=== PATIENT | female | born 1935 | race Caucasian/White ===

== ENCOUNTER 2016-11-29 06:49 | Emergency (ER) | payer MEDICARE ==
[~2016-11-29] VITALS: Ht 162.6 cm; Wt 69.0 kg
[~2016-11-29 06:49] MED LIST: AMARYL1 M1 PO; AMARYL4 MG OR; AMLODIPINE5 MG PO; BACTRIM DS1 TAB OR; BACTRIM DS1 TAB PO; BENAZEPRIL40 M1 PO; CALCIUM CHEL1 CAP OR; CEPHALEXIN500 M1 PO; CIPRO500 MG OR; CIPRODEX1 ML AD; CIPROFLOXACN500 MG PO; DEBROX6.5 % AD; FISH OIL500 MG OR; FLONASE NASAL50 MCG; GNP RED YEAST RICE; HYDROCHLOROT25 MG OR; LISINOPRIL40 MG PO; LISINOPRIL5 MG PO; LORTAB 5 OR; LOTREL1 CA1 OR; LOTREL1 CA3 OR; MAGNESIUM250 M1 PO; MECLIZINE25 MG PO; MEDDOSEPAK OR; METFORMIN1000 MG OR; METFORMIN500 M1 PO; METRONIDAZOL500 MG PO; MUCINEX600 MG OR; MUCINEX600 MG PO; NORCO1 TA1 PO; PERCOCET 5/325M1 TAB OR; PROTONIX40 M2 PO; TESSALON PER100 MG PO; ZITHROMAX250 MG PO
[2016-11-29] MEDS ORDERED: AMLODIPINE5 MG PO (06:58)
[2016-11-29 07:52] LABS: HEMATOCRIT 34.1 % (37.0-47.0); HEMOGLOBIN 11.1 g/dl (12.0-16.0); IMMATURE GRANULOCYTES 0.4 % (0.0-1.0); MEAN CELL VOLUME 93.9 fL CALC (80.0-100.0); MEAN CORPUSCULAR HGB 30.6 pG CALC (26.0-32.0); MEAN CORPUSCULAR HGB CONC 32.6 g/L CALC (32.0-36.0); NEUT# 2.22 thou/uL (2.00-7.15); RED BLOOD COUNT 3.63 mill/uL (4.20-5.60); RED CELL DISTRI WIDTH 12.6 % (11.5-15.5)
[2016-11-29 07:54] LABS: URINE BILIRUBIN - DIPSTICK NEGATIVE (NEGATIVE); URINE BLOOD DIPSTICK TRACE-LYSED (NEGATIVE); URINE CLARITY CLEAR; URINE COLOR YELLOW; URINE GLUCOSE - DIPSTICK NEGATIVE (NEGATIVE); URINE KETONE NEGATIVE (NEGATIVE); URINE LEUK ESTERASE TRACE (NEGATIVE); URINE NITRITE - DIPSTICK NEGATIVE (Negative); URINE PROTEIN - DIPSTICK NEGATIVE (NEG-TRACE); URINE UROBILINOGEN - DIPSTICK 0.2 E.U./dL (0.2)
[2016-11-29 08:02] LABS: ALBUMIN 4.5 g/dL (3.2-5.0); ALKALINE PHOSPHATASE 95 u/l (38-126); ANION GAP 17 (6-22 (CALC)); BILIRUBIN, TOTAL 0.2 mg/dL (0.0-1.4); BUN 23 mg/dL (8-23); BUN/CREATININE RATIO 25 (12-20 (CALC)); CALCIUM 9.8 mg/dL (8.4-10.2); CARBON DIOXIDE 22 mmol/l (22-30); CHLORIDE 104 mmol/l (95-108); CREATININE 0.9 mg/dL (0.5-1.0); GFR 60 ML/MIN (>=60 (CALC)); GFR FOR AFR.AMER. > 60 ML/MIN (>=60 (CALC)); GLUCOSE 161 mg/dL (82-115); POTASSIUM 4.8 mmol/l (3.5-5.1); SGOT/AST 20 u/l (9-36); SGPT/ALT 35 u/l (11-66); SODIUM 139 mmol/l (137-146); TOTAL PROTEIN 7.2 g/dL (6.3-8.2)
[2016-11-29 08:14] LABS: MYOGLOBIN 39 ng/mL (0 - 62)
[2016-11-29 08:41] VITALS: BP 170/70
== END 2016-11-29 08:41 | disposition home or self-care (01) ==
LOC: ED 06:49
PROVIDERS: Emergency Medicine
DX: R53.81 Other malaise (principal); I10 Essential (primary) hypertension; E11.9 Type 2 diabetes mellitus without complications; R00.1 Bradycardia, unspecified; Z87.442 Personal history of urinary calculi

== ENCOUNTER → 2018-07-08 | Outpatient (REF) | payer MEDICARE ==
[2018-07-08 08:14] LABS: HEMATOCRIT 36.7 % (37.0-47.0); HEMOGLOBIN 12.1 g/dl (12.0-16.0); IMMATURE GRANULOCYTES 0.6 % (0.0-5.0); MEAN CELL VOLUME 92.4 fL CALC (80.0-100.0); MEAN CORPUSCULAR HGB 30.5 pG CALC (26.0-32.0); NEUT# 2.51 thou/uL (2.00-7.15); RED BLOOD COUNT 3.97 mill/uL (4.20-5.60); RED CELL DISTRI WIDTH 13.2 % (11.5-15.5)
[2018-07-08 08:41] LABS: ANION GAP 16 (6-22 (CALC)); BUN 22 mg/dL (8-23); BUN/CREATININE RATIO 23 (12-20 (CALC)); CALCULATED LDLCHOLESTEROL 117 mg/dL (62-129 (CALC)); CARBON DIOXIDE 27 mmol/l (22-30); CHLORIDE 104 mmol/l (95-108); CHOLESTEROL HDL RATIO 2.8 (<4.4 (CALC)); CREATININE 0.9 mg/dL (0.5-1.0); GFR 60 ML/MIN (>=60 (CALC)); GFR FOR AFR.AMER. > 60 ML/MIN (>=60 (CALC)); HDL CHOLESTEROL 77 mg/dL (>=40); POTASSIUM 4.8 mmol/l (3.5-5.1); SODIUM 141 mmol/l (137-146); TOTAL CHOLESTEROL 216 mg/dl (0-199); TOTAL TRIGLYCERIDES 109 mg/dl (30-149); VLDL CHOLESTROL 22 mg/dl (0-48 (CALC))
== END | disposition home or self-care (01) ==
LOC: LAB 06:39
PROVIDERS: ATTEND Internal Medicine
DX: E11.9 Type 2 diabetes mellitus without complications (principal); E78.5 Hyperlipidemia, unspecified; I10 Essential (primary) hypertension

== ENCOUNTER 2021-08-20 12:32 | Emergency (ER) | payer MEDICARE ==
[~2021-08-20] VITALS: Ht 157.5 cm; Wt 61.2 kg
[2021-08-20 12:46] VITALS: BP 161/62
[2021-08-20 13:00] VITALS: BP 143/53
[2021-08-20 13:30] VITALS: BP 145/54
[2021-08-20 14:31] VITALS: BP 141/55
[2021-08-20 15:02] VITALS: BP 164/57
== END 2021-08-20 15:29 | disposition home or self-care (01) ==
LOC: ED 12:32
DX: K59.00 Constipation, unspecified (principal)

== ENCOUNTER 2021-09-17 13:08 | Observation (INO) | payer MEDICARE ==
[2021-09-17] VITALS (13 sets, daily range): BP systolic 135–172; BP diastolic 42–61
[~2021-09-17] VITALS: Ht 157.5 cm; Wt 61.0 kg
[~2021-09-17 13:08] MED LIST changes: +CRESTOR5 M1 PO; +FISH OIL1200 M1 PO; +LISINOPRIL10 MG PO; -LISINOPRIL5 MG PO; +NORVASC5 M1 PO
[2021-09-17 13:47] LABS: HEMATOCRIT 34.2 % (37.0-47.0); IMMATURE GRANULOCYTES 0.4 % (0.0-5.0); MEAN CELL VOLUME 93.4 fL CALC (80.0-100.0); MEAN CORPUSCULAR HGB 30.1 pG CALC (26.0-32.0); MEAN CORPUSCULAR HGB CONC 32.2 g/dL CAL (32.0-36.0); NEUT# 2.61 thou/uL (2.00-7.15); RED BLOOD COUNT 3.66 mill/uL (4.20-5.60); RED CELL DISTRI WIDTH 13.6 % (11.5-15.5)
[2021-09-17 14:08] LABS: ALBUMIN 4.3 g/dL (3.2-5.0); POTASSIUM 4.5 mmol/l (3.5-5.1)
[2021-09-17 14:23] LABS: BILIRUBIN, TOTAL 0.3 mg/dL (0.0-1.4); CREATININE 1.1 mg/dL (0.5-1.0); TOTAL PROTEIN 7.2 g/dL (6.3-8.2)
[2021-09-17 14:24] LABS: INTERNATIONAL NORMALIZED RATIO 0.9 RATIO (0.7-1.3); PROTHROMBIN TIME 9.9 SECONDS (9.0-12.5)
[2021-09-17 14:32] LABS: URINE BILIRUBIN - DIPSTICK NEGATIVE (NEGATIVE); URINE BLOOD DIPSTICK NEGATIVE (NEGATIVE); URINE COLOR YELLOW; URINE GLUCOSE - DIPSTICK NEGATIVE (NEGATIVE); URINE KETONE NEGATIVE (NEGATIVE); URINE LEUK ESTERASE TRACE (NEGATIVE); URINE NITRITE - DIPSTICK NEGATIVE (Negative); URINE PROTEIN - DIPSTICK NEGATIVE (NEG-TRACE); URINE SPECIFIC GRAVITY 1.015; URINE UROBILINOGEN - DIPSTICK 0.2 E.U./dL (0.2)
[2021-09-17] MEDS ORDERED: FAMOTIDINE20 M1 PO (16:08)
[2021-09-18 04:47] VITALS: BP 141/34
[2021-09-18 06:14] LABS: HEMATOCRIT 36.2 % (37.0-47.0); HEMOGLOBIN 11.6 g/dl (12.0-16.0); MEAN CELL VOLUME 93.1 fL CALC (80.0-100.0); MEAN CORPUSCULAR HGB 29.8 pG CALC (26.0-32.0); RED BLOOD COUNT 3.89 mill/uL (4.20-5.60); RED CELL DISTRI WIDTH 13.5 % (11.5-15.5)
[2021-09-18 06:44] LABS: CHOLESTEROL HDL RATIO 2.3 (<4.4 (CALC)); CREATININE 1.2 mg/dL (0.5-1.0); MAGNESIUM 2.2 mg/dL (1.6-2.3); POTASSIUM 4.7 mmol/l (3.5-5.1)
[2021-09-18 07:29] VITALS: BP 142/35
== END 2021-09-18 10:55 | disposition home or self-care (01) ==
LOC: ED 13:08 → ED-I 14:35 → ED 15:35 → MS2 15:36
PROVIDERS: Nurse Practitioner; ADMIT Hospitalist; ATTEND Hospitalist
DX: R07.9 Chest pain, unspecified (principal); K21.9 Gastro-esophageal reflux disease without esophagitis; K27.9 Peptic ulcer, site unspecified, unspecified as acute or chronic, without hemorrhage or perforation; I10 Essential (primary) hypertension; E11.9 Type 2 diabetes mellitus without complications; E78.5 Hyperlipidemia, unspecified; Z79.84 Long term (current) use of oral hypoglycemic drugs; Z20.822 Contact with and (suspected) exposure to COVID-19
CPT/HCPCS: J1650